=== PATIENT | male | born 1995 | race African-American/Black ===

== ENCOUNTER → 2019-06-25 | Emergency (ER) | payer SELFPAY ==
[~2019-06-25] VITALS: Ht 182.9 cm; Wt 85.7 kg
[~2019-06-25] MED LIST: GUAIFENESI100 MG/5 M ORAL; TAMIFLU75 MG ORAL; ZITHROMAX250 MG ORAL; ZOFRAN4 M1 ORAL
[2019-06-25 12:47] VITALS: BP 124/68
--- NOTE | 2019-06-25 12:48 | NUR ---
ED Nurse Note:pt. came with flu like symptoms and fever since last night
--- NOTE | 2019-06-25 12:55 | Emergency Room Report ---
History of Present Illness General Chief Complaint: Flu Like Symptoms Source: Patient Present Illness HPI 23-year-old male with no segment past medical history other than tobacco smoking marijuana use here complaining of 1 day of generalized body ache, fever and chills, a few bouts of nonbloody diarrhea and vomiting. Patient is here with his entire family who present with similar symptoms. Is not up-to-date with immunization. Denies chest pain, shortness of breath, palpitation, no other associated symptoms. Complains of a minor sore throat. Has not taken medication for symptom relief. Patient is a heavy tobacco smoke, and was exposed to bacterial infection exposed to his who is also being seen by me today of symptoms and high fever. Allergies: Coded Allergies: No Known Allergies (Unverified , 06/25/19) Patient History Past Medical History: see triage record Past Surgical History: unable to obtain Pertinent Family History: none Social History: Reports: smoking Immunizations: UTD Reviewed Nursing Documentation: PMH: Agreed; PSxH: Agreed Nursing Documentation-PMH Past Medical History: No Stated History Review of Systems All Other Systems: negative except mentioned in HPI Physical Exam Vital Signs Date Time Temp Pulse Resp B/P (MAP) Pulse Ox O2 Delivery O2 Flow Rate FiO2 06/25/19 12:20 102.9 105 20 124/68 (86) 99 Sp02 EP Interpretation: reviewed, normal General Appearance: no apparent distress, alert, GCS 15, non-toxic Head: normocephalic, atraumatic Eyes: bilateral eye normal inspection, bilateral eye PERRL ENT: hearing grossly normal, no angioedema, normal voice, TMs + canals normal, nasal congestion, tonsillar swelling, pharyngeal erythema Neck: full range of motion, supple, thyroid normal, no meningismus, supple/symm /no masses Respiratory: chest non-tender, lungs clear, normal breath sounds, no rhonchi, no respiratory distress, no retraction, no wheezing, speaking full sentences Cardiovascular #1: no edema, no murmur Gastrointestinal: non tender, soft Genitourinary: no CVA tenderness Musculoskeletal: back normal Neurologic: alert, motor strength/tone normal, oriented x3, sensory intact, responsive, speech normal Psychiatric: judgement/insight normal, memory normal, mood/affect normal, no suicidal/homicidal ideation Skin: no rash Lymphatic: no adenopathy Medical Decision Making PA Attestation All my diagnosis and treatment plans were reviewed ad discussed with my supervising physician Dr. Valentin Diagnostic Impression: Primary Impression: Influenza-like symptoms Additional Impression: Pharyngitis ER Course 23-year-old male with no segment past medical history other than tobacco smoking marijuana use here complaining of 1 day of generalized body ache, fever and chills, a few bouts of nonbloody diarrhea and vomiting. Patient is here with his entire family who present with similar symptoms. Is not up-to-date with immunization. Denies chest pain, shortness of breath, palpitation, no other associated symptoms. Complains of a minor sore throat. Has not taken medication for symptom relief. Patient is a heavy tobacco smoke, and was exposed to bacterial infection exposed to his who is also being seen by me today of symptoms and high fever. Ddx considered but are not limited to: strep pharyngitis, URI, tonsillitis, peritonsillar abscess, influneza Vital signs: are WNL, pt. is febrile H&PE are most consistent with: Influenza-like symptoms, pharyngitis ORDERS: Tamiflu, azithromycin, guaifenesin, Zofran ED INTERVENTIONS: Motrin and Tylenol DISCHARGE: At this time pt. is stable for d/c to home. Will provide printed patient care instructions, and any necessary prescriptions. Care plan and follow up instructions have been discussed with the patient prior to discharge. Take medication as directed, avoid smoking, follow-up with primary care provider, increase oral hydration, if worsening symptoms return to emergency room Last Vital Signs Date Time Temp Pulse Resp B/P (MAP) Pulse Ox O2 Delivery O2 Flow Rate FiO2 06/25/19 12:47 102.9 105 20 124/68 99 Disposition: HOME, SELF-CARE Condition: Stable Scripts Ondansetron (Zofran) 4 Mg Tablet 4 MG ORAL Q6H PRN for Nausea & Vomiting, #10 TAB Prov: Lico Jesus 06/25/19 Guaifenesin* (GUAIFENESIN) 100 Mg/5 Ml Liquid 5 ML ORAL Q6H, #120 ML 0 Refills Prov: Lico Jesus 06/25/19 Azithromycin* (ZITHROMAX*) 250 Mg Tablet 250 MG ORAL DAILY, #6 TAB 0 Refills Take two tables once daily for 1 day, then one tablet once daily for 4 days. Prov: Lico Jesus 06/25/19 Oseltamivir Phosphate (Tamiflu) 75 Mg Capsule 75 MG ORAL TWICE A DAY for 5 Days, #10 CAP Prov: Lico Jesus 06/25/19 Patient Instructions: Pharyngitis, [id number]-[id number] Additional Instructions: Avoid smoking, take medication as directed, follow-up with your primary care provider, if worsening symptoms return to the emergency room Lico Jesus Jun 25, 2019 12:54
--- NOTE | 2019-06-25 13:14 | NUR ---
ER DISCHARGE NOTE: Pt is cleared to be discharge per ERMD,. Pt is AOx4, on RA, VSS. pt was given dc and prescription instructions, pt was able to verbalize understanding, pt id band removed. pt is able to ambulate with steady gait. Pt left ER with all belongings.
== END | disposition home or self-care (01) ==
LOC: EMR 13:15
DX: J02.9 Acute pharyngitis, unspecified (principal); F12.90 Cannabis use, unspecified, uncomplicated; F17.200 Nicotine dependence, unspecified, uncomplicated
CPT/HCPCS: 99282